=== PATIENT | female | born 1990 | race Caucasian/White ===

== ENCOUNTER 2020-02-27 15:17 | Emergency (ER) | payer OTHER, SELFPAY ==
[2020-02-27 15:32] VITALS: BP 121/77; PULSE 84; RESP 14; TEMP 37.1; O2SAT 100; BMI 30.2
--- NOTE | 2020-02-27 15:45 | ED_ITS ---
HPI - Extremity Problem General: Chief complaint: Extremity Problem,Nontraumatic Stated complaint: NAIL INTO L FOOT 02.26.20/[place]IB[facility]OTICS FROM [facility] [place] Time Seen by Provider: 02/27/20 15:38 History of Present Illness: HPI Narrative: 29-year-old female patient reports she stepped on a nail yesterday. She states was walking in a barn, stepped on a stud nail, was wearing flip-flops. States pain is become intense, reports difficulty walking. Tetanus shot and prescription of Bactrim prescribed by urgent care yesterday. She denies fever or chills -has attempted Epsom salt and ibuprofen, keeping the extremity elevated. MD Complaint: extremity pain and extremity swelling Onset (ago): day(s) (1) Pain Consistency: constant Location: left and lower extremity Quality: aching and constant Relieving factors: rest Exacerbating factors: weight bearing Associated symptoms: Reports no associated symptoms; Deny chest pain, fever(s) or rash Review of Systems General: Reports: 10 or more systems reviewed and unremarkable except in HPI and below Const: Denies: fever(s), chills or diaphoresis Eyes: Denies: blurry vision or eye redness ENMT: Denies: throat pain, dental pain or disequilibrium Card: Denies: chest pain, palpitations or irregular heart rhythm Resp: Denies: dyspnea, productive cough, non-productive cough or wheezing GI: Denies: abdominal pain, nausea or vomiting : Denies: difficulty voiding or dysuria Musc: Reports: extremity pain (left foot); Denies: neck pain or back pain Skin/Breast: Reports: erythema (left foot) and skin tenderness (left foot); Denies: rash or pruritus Neuro: Denies: headache(s), weakness in extremities or behavioral changes Psych: Denies: anxiety or depression Young/Lymph: Denies: easy bruising PFS ED PFSH: Social History (Updated 02/26/20 @ 16:09 by Veda Loco LPN) Smoking and tobacco status: never smoked Physical Exam Const: COMMON NORMALS: no acute distress, patient oriented x3, healthy appearing and alert GENERAL APPEARANCE: cooperative, comfortable and well hydrated HENMT: COMMON NORMALS: normocephalic, Normal external nose present and moist oral mucous membranes HEAD & SCALP: normocephalic NOSE: Normal external nose present Eye: COMMON NORMALS: Equal, round and reactive pupils present and EOMs intact bilaterally GENERAL EYE: appearance normal, both eyes and all related structures PUPIL: Yes Equal, round and reactive pupils present Neck/C-Spine: COMMON NORMALS: full ROM and no lymphadenopathy GENERAL: Yes normal visual inspection and Yes trachea midline CERVICAL SPINE: Yes cervical ROM normal Lymph: LYMPHATIC: no lymphadenopathy noted Chest: COMMONS NORMALS: normal inspection of the chest Resp: COMMON NORMALS: normal respiratory effort and clear to auscultation bilaterally AUSCULTATION: clear to auscultation bilaterally Cardio: COMMON NORMALS: regular rhythm, S1 normal heart sound present, S2 normal heart sound present and Peripheral pulses 2+ throughout RHYTHM: regular rhythm HEART SOUNDS: S1 normal heart sound present and S2 normal heart sound present PERIPHERAL PULSES: Peripheral pulses 2+ throughout GI: COMMON NORMALS: Soft to palpation and non-tender INSPECTION: Yes normal to inspection PALPATION: Yes Soft to palpation : COMMON NORMALS: Yes no CVA tenderness BLADDER/KIDNEY EXAM: Yes no CVA tenderness Back/Pelvis: COMMON NORMALS: no CVA tenderness and thoracic and lumbar spine normal to inspection Extremity: COMMON NORMALS: normal to inspection and capillary refill normal GENERAL: Yes normal exam except as noted RIGHT LOWER EXTREMITY: Yes foot & digits (p/w to plantar distal foot, between third and fourth MTP. Surrounding erythema noted, flexion extension of the toes noted. Negative lymphadenitis.) Neuro: COMMON NORMALS: patient oriented x3 and no focal motor deficits SENSORIUM/ORIENTATION: Yes alert Psych: COMMON NORMALS: mental status grossly normal, Normal thought process present and cooperative ACTIVITY/MOTOR BEHAVIOR: Yes appropriate eye contact THOUGHT PROCESS: Normal thought process present Skin: COMMON NORMALS: no rashes or lesions noted and turgor normal GENERAL SKIN EXAM: no rashes or lesions noted and turgor normal Course ED course: Pleasant 29-year-old female patient presents to the emergency department with left foot puncture wound. X-ray of the left foot revealed no foreign body, I called and spoke with Dr. Beavers with my concern of redness and swelling of the left foot, plantar surface surrounding the puncture wound. Advised patient needs to be seen for possible incision and drainage. I discussed with the patient plan, agrees and wishes to proceed with referral to podiatry. She will be placed on crutches and postop shoe, per Dr. Beavers, he will prescribed needed antibiotics for the patient. Consultations: Consultation #1: Dr Beavers -spoke with Dr. Beavers, advised patient to go to his office, reports will need incision and drainage of the foot since pain has worsened and redness/cellulitis of the left foot is present. He reports we will prescribe needed antibiotics after evaluation of the foot. Vital Signs: Vital signs: Vital Signs Temperature 98.8 F 02/27/20 15:32 Pulse Rate 84 02/27/20 15:32 Respiratory Rate 14 02/27/20 15:32 Blood Pressure 121/77 02/27/20 15:32 Pulse Oximetry 100 02/27/20 15:32 MDM - Extremity (Nontraumatic) Imaging Data^: Xray Ortho: Radiologist's impression: [address] [address] XRay Report Signed Patient: Alina Espinal Unit #: [id number] : 1990 Age/Sex: 29 / F ADM Date: 02/27/20 Loc: ER Room/Bed: Attending Dr: Ordering Provider/Ordering MD: Luana Valenzuela Date of Service: 02/27/20 Procedure(s): XR foot LT min 3V* 54563 Accession Number(s): [id number] Report Number: [id number] WS: [id number] Left foot, 3 views, 02/27/2020 Clinical Data: puncture wound Comparison: None. Findings: No fractures or dislocations are seen. No bone destruction or erosion is noted. The joint spaces and soft tissues are normal. No radiopaque foreign body is seen. There is no subcutaneous air in the foot. XR/XR foot LT min 3V* [id number] Impression: Negative left foot. Dictated By: Kathy Chaney MD Signed By: Kathy Chaney MD Signed Date/Time: 02/27/201557 DD/ 57 Discharge Plan Discharge Patient Disposition: Home Clinical Impression: Cellulitis of foot Puncture wound of foot Qualifiers: Encounter type: initial encounter Laterality: left Qualified Code(s): S91.332A - Puncture wound without foreign body, left foot, initial encounter Condition: Stable Prescriptions: No Action sulfamethoxazole-trimethoprim [Bactrim DS] 800-160 mg tablet 1 tab PO BID 7 Days Qty: 14 RF: 0 fluconazole [Diflucan] 150 mg tablet 150 mg PO ONCE Qty: 1 RF: 0 Discharge Orders: Discharge Order (Routine); Ordered 02/27/20 Ordered By: Luana Valenzuela Discharge Diet: Usual diet Discharge Activity: Limit activity as instructed Patient Instructions: Puncture Wound (ED), Cellulitis (ED) Activity Restrictions/Additional Instructions: when you leave the ER - you are to go directly to Dr Beavers's office for evaluation do NOT go home Dr Beavers will prescribe needed medication for you Coding Level of Care Code ED Risk And Compliance Analytics Director for Carolyn Fwd Exam Comprehensive
--- NOTE | 2020-02-27 15:45 | XR_ITS ---
WS: [id number] Left foot, 3 views, 02/27/2020 Clinical Data: puncture wound Comparison: None. Findings: No fractures or dislocations are seen. No bone destruction or erosion is noted. The joint spaces and soft tissues are normal. No radiopaque foreign body is seen. There is no subcutaneous air in the foot. XR/XR foot LT min 3V* 13082 Impression: Negative left foot.
== END 2020-02-27 16:32 | disposition home or self-care (01) ==
PROVIDERS: Emergency Provider Nurse Practitioner Family
DX: S91.332A Puncture wound without foreign body, left foot, initial encounter (principal); L03.116 Cellulitis of left lower limb; W45.0XXA Nail entering through skin, initial encounter
CPT/HCPCS: 12345; 73630; 87070; 87075; 87205; 99281; 99283; E0114

== ENCOUNTER 2020-08-13 12:11 | Emergency (ER) | payer OTHER, SELFPAY ==
[2020-08-13 12:22] VITALS: BP 164/75; PULSE 89; RESP 18; TEMP 37.1; O2SAT 99; BMI 30.2
--- NOTE | 2020-08-13 13:09 | US_ITS ---
WS: [id number] ULTRASOUND ABDOMEN LIMITED CLINICAL INFORMATION: RUQ abd pain COMPARISON: None. FINDINGS: Liver Size: Normal. Craniocaudal length: 16.1 cm. Echogenicity: Normal. Surface nodularity: None. Mass (size and location): None. Bile ducts Intrahepatic ducts: Normal. Common bile duct diameter: 0.4 cm. Gallbladder Normal. Gallstones: None. Gallbladder sludge: None. Gallbladder wall thickening: None. Pericholecystic fluid: None. Sonographic Bazzi sign: Absent. Pancreas Normal as visualized. Right kidney: Normal. Hydronephrosis: None. Size: 11.0 cm x 5.6 cm x 4.4 cm. Abdominal aorta and IVC Visualized portions are normal. Ascites: None. US/US gall bladder [id number] IMPRESSION: Normal abdominal ultrasound
--- NOTE | 2020-08-13 13:10 | W.ED.ABDPA2 ---
HPI - Abdominal Pain General: Chief Complaint: Abdominal Pain Stated Complaint: RUQ ABD PAIN/STATES GALLBLADDER PROB X COUPLE YRS Time Seen by Provider: 08/13/20 12:38 History of Present Illness: HPI narrative: 30-year-old female presents emergency room with complaint of abdominal pain. This is actually been going on for several years. She has right upper quadrant abdominal pain seems to go from the umbilicus radiating up into the right upper quadrant into her back she denies dysuria urgency or frequency. She states it began after her last child she has had a previous HIDA scan but evidently never had a gallbladder ultrasound. HIDA scan was reported to her as normal so she did not pursue it any further but last few weeks she has had a significant increase in abdominal discomfort she states almost anything she eats seems to trigger it. She denies any vomiting or diarrhea no fever. No dysuria urgency or frequency MD elicited complaint: abdominal pain Onset (ago): year(s) Pain Consistency: intermittent Location: RUQ Severity: moderate Quality: cramping and stabbing Radiation: R flank Exacerbating factors: eating (Particular foods) Relieving factors: nothing Associated Symptoms: Reports bloating, change in bowel habits, change in stool character, GI cramping, dyspepsia, nausea and poor appetite; Denies chills, coffee ground emesis, constipation, diarrhea, dysuria, excessive flatus, fever(s), heartburn, hematochezia, hematuria, hematemesis, fecal incontinence, loose stools, melena, syncope and vomiting Review of Systems Const: Denies: fever(s) or chills ENMT: Denies: throat pain, ear or mastoid pain, nasal discharge or nasal congestion Card: Denies: syncope Resp: Denies: dyspnea, productive cough or non-productive cough GI: Reports: nausea, bloating, GI cramping, change in bowel habits and change in stool character; Denies: vomiting, hematemesis, coffee ground emesis, diarrhea, constipation, excessive flatus, fecal incontinence, hematochezia or melena : Denies: dysuria or hematuria Skin/Breast: Denies: rash or pruritus PFS ED PFSH: Medical History (Updated 08/13/20 @ 14:13 by Josr Kovacs DO) No pertinent past medical history Surgical History History of delivery Social History Smoking and tobacco status: never smoked Physical Exam Const: COMMON NORMALS: no acute distress GENERAL APPEARANCE: cooperative and comfortable ORIENTATION/CONSCIOUSNESS: Yes awake, Yes oriented to person, Yes oriented to place and Yes oriented to time HENMT: COMMON NORMALS: normocephalic, atraumatic and hearing grossly normal bilaterally HEAD & SCALP: normocephalic and atraumatic Neck/C-Spine: COMMON NORMALS: no JVD Resp: COMMON NORMALS: normal respiratory effort, No retractions, No use of accessory muscles and clear to auscultation bilaterally AUSCULTATION: clear to auscultation bilaterally Cardio: COMMON NORMALS: no JVD, regular rate, regular rhythm and No murmurs present (Cardio) RATE: regular rate RHYTHM: regular rhythm GI: COMMON NORMALS: Soft to palpation and No hepatosplenomegaly present AUSCULTATION: Yes normoactive bowel sounds PALPATION: Yes Soft to palpation, No Tenderness to palpation present (GI), No Guarding due to palpation present (GI) and Yes No hepatosplenomegaly present Extremity: COMMON NORMALS: normal to inspection, capillary refill normal, no clubbing, cyanosis or edema, no calf tenderness and no pedal edema Neuro: SENSORIUM/ORIENTATION: Yes oriented to person, Yes oriented to place and Yes oriented to time Skin: COMMON NORMALS: no rashes or lesions noted GENERAL SKIN EXAM: no rashes or lesions noted Course Vital Signs: Vital signs: Vital Signs Temperature 98.7 F 08/13/20 12:22 Pulse Rate 72 08/13/20 14:29 Respiratory Rate 18 08/13/20 12:22 Blood Pressure 119/72 08/13/20 14:29 Pulse Oximetry 72 L 08/13/20 14:29 MDM - Abdominal Pain MDM Narrative: Medical decision making narrative: Liver functions and T bili are normal. CT and gallbladder ultrasound unremarkable. Patient on Zofran as needed Protonix daily and encourage her to follow-up with primary care doctor to repeat HIDA scan and/or have endoscopy completed. Return if has further problems Lab Data: Labs: Lab Results 08/13/20 08/13/20 08/13/20 Range/Units 13:07 13:07 13:07 Sodium 135 L (136-145) mmol/L Potassium 4.1 (3.5-5.1) mmol/L Chloride 101 (98-107) mmol/L Carbon Dioxide 24 (22-29) mmol/L Anion Gap 14.1 (5-19) BUN 9 (6-20) mg/dL Creatinine 0.6 (0.5-0.9) mg/dL GFR Calculation 116.6 (90-130) mL/min Glucose 76 (65-115) mg/dL Calculated Osmolal ity 277 L (285-295) mOsm/k g Calcium 9.0 (8.5-10.5) mg/dL Total Bilirubin 0.6 (0.15-1.2) mg/dL AST 22 (0-32) U/L ALT 17 (0-33) U/L Alkaline Phosphata se 59 (35-105) IU/L Total Protein 7.9 (6.6-8.7) g/dL Albumin 5.0 (3.5-5.2) g/dL Globulin 2.9 (1.3-4.6) g/dL Lipase 23 (13-60) U/L HCG, Qual Negative (Negative) Urine Color Straw (Yellow) Urine Appearance Clear (CLEAR) Urine pH 6.5 (5-7) Ur Specific Gravit y 1.000 L (1.005-1.030) Urine Protein Neg (Negative) Urine Glucose (UA) Norm (Normal) Urine Ketones Negative (Negative) Urine Blood Neg (Negative) Urine Nitrate Negative (Negative) Urine Bilirubin Neg (Negative) Urine Urobilinogen Norm (Negative) mg/dL Ur Leukocyte Yolanda ase Negative (Negative) Discharge Plan Discharge Patient Disposition: Home Clinical Impression: Abdominal pain Condition: Stable Prescriptions: New Zofran 4 mg tablet 4 mg PO Q6H PRN (Reason: nausea and vomiting) Qty: 20 RF: 0 Protonix 40 mg tablet,delayed release (DR/EC) 40 mg PO QAM 56 Days Qty: 56 RF: 0 No Action mupirocin 2 % ointment 1 applic TOPICAL BID Qty: 15 RF: 0 sulfamethoxazole-trimethoprim [Bactrim DS] 800-160 mg tablet 1 tab PO BID 7 Days Qty: 14 RF: 0 fluconazole [Diflucan] 150 mg tablet 150 mg PO ONCE Qty: 1 RF: 0 clindamycin HCl 300 mg capsule 300 mg PO TID 7 Days Qty: 21 RF: 0 ciprofloxacin HCl 500 mg tablet 500 mg PO Q12H 7 Days Qty: 14 RF: 0 hydrocodone-acetaminophen [Coyle] 5-325 mg tablet 1 tab PO Q4H PRN (Reason: pain) 7 Days Qty: 20 RF: 0 oxycodone-acetaminophen [Percocet] 10-325 mg tablet 1 tab PO Q4H PRN (Reason: pain) 7 Days Qty: 20 RF: 0 oxycodone-acetaminophen [Percocet] 10-325 mg tablet 1 tab PO Q6H PRN (Reason: pain) 7 Days Qty: 20 RF: 0 Discharge Orders: Discharge ED (Routine); Ordered 08/13/20 Ordered By: Josr Kovacs Referrals: Tahira Sommer FNP [Primary Care Provider] - Patient Instructions: Abdominal Pain (ED), Opioid Safety Coding Level of Care Code ED Human Resources Receptionist for Carolyn Maradiaga
[2020-08-13 13:23] VITALS: BP 119/72; PULSE 68; O2SAT 98
--- NOTE | 2020-08-13 13:32 | CT_ITS ---
WS: [id number] CT scan of the abdomen and pelvis with IV contrast. Additional two-dimensional coronal and sagittal r econstruction was performed. 08/13/2020 Clinical Data: abd pain Comparison: CT abdomen and pelvis, 06/22/2018. DLP: 1360.[address] scans at [facility] [place] use at least one of these dose optimization techniques: automat ed exposure control; mA and/or kV adjustment per patient size (includes targeted exams where dose is matched to clinical indication); or iterative reconstruction. Findings: The lower lungs show no nodules, masses or effusions. The liver, gallbladder, spleen, adrenal glands and pancreas are normal. The kidneys show equal bilateral contrast excretion with no cyst or masses. There is a central 0.3 cm nonobstructing left renal calculus The abdominal aorta is normal in size. No appendicitis or diverticulitis is seen. The stomach, small bowel and colon show no abnormalities. There is fecal material in the colon. No abscess, adenopathy, ascites, mass, obstruction or free air seen. The bladder is unremarkable. There is a 1.4 cm right adnexal cyst. The uterus is retroverted. No ingu inal hernia is seen. The bones of the lower thorax, lumbar spine, pelvis, and hips are normal. CT/CT abdomen pelvis w con* [id number] Impression: 1. Negative for acute intra-abdominal or pelvic abnormalities. 2. Nonobstructing left renal calculus and 1.4 cm right adnexal cyst.
[2020-08-13 13:33] LABS: Add Urine Microscopic? NO; Charge for UA Resulting for Rev
[2020-08-13 13:35] LABS: Bilirubin Urine Neg (Negative); Blood Urine Neg (Negative); Glucose Urine UA Norm (Normal); Ketones Urine Negative (Negative); Leukocyte Esterase Urine Negative (Negative); Nitrate Urine Negative (Negative); Protein Urine Neg (Negative); Urine Appearance Clear (CLEAR); Urine Color Straw (Yellow); Urobilinogen Urine Norm (Negative); pH Urine 6.5 (5-7)
[2020-08-13] MEDS: sodium chlor 0.9% + KCl 20 mEq 20 MEQ/1,000 ML BAG 125 MEQ IV (13:35)
[2020-08-13] MEDS: ondansetron 2 mg/ML SDV 2 mL 4 MG IVP (13:35)
[2020-08-13 13:36] LABS: HCG, Serum Qual Negative (Negative)
[2020-08-13 13:47] LABS: Alkaline Phosphatase 59 IU/L (35-105); Blood Urea Nitrogen 9 mg/dL (6-20); Carbon Dioxide 24 mmol/L (22-29); Chloride 101 mmol/L (98-107); Creatinine Clr Calc Pharmacy 123.7692; Globulin 2.9 g/dL (1.3-4.6); Glomerular Filtration Rate 116.6 mL/min (90-130); Glucose 76 mg/dL (65-115); Lipase 23 U/L (13-60); Osmolality Calculated 277 mOsm/kg (285-295); Sodium 135 mmol/L (136-145); Total Bilirubin 0.6 mg/dL (0.15-1.2); Total Protein 7.9 g/dL (6.6-8.7)
[2020-08-13 13:51] LABS: Anion Gap 14.1 (5-19)
[2020-08-13] MEDS: iohexol 300 mg/mL 100 mL Btl IV (13:51)
[2020-08-13 13:52] LABS: Alanine Aminotransferase 17 U/L (0-33); Aspartate Amino Transferase 22 U/L (0-32); Potassium 4.1 mmol/L (3.5-5.1)
[2020-08-13 14:29] VITALS: BP 119/72; PULSE 72; O2SAT 72
== END 2020-08-13 14:30 | disposition home or self-care (01) ==
PROVIDERS: Emergency Provider Family Medicine; PCP Registered Nurse
DX: R10.9 Unspecified abdominal pain (principal)
CPT/HCPCS: 74177; 76705; 80053; 81003; 83690; 84703; 96365; 96366; 96375; 99284; J2405; Q9967

== ENCOUNTER → 2020-10-08 16:10 | Outpatient (BNVA) | payer OTHER, SELFPAY | PROVIDERS: PCP Registered Nurse; Visit Provider Obstetrics & Gynecology | DX: Z12.4 Encounter for screening for malignant neoplasm of cervix (principal) | CPT/HCPCS: 88175 ==

== ENCOUNTER → 2020-10-21 15:58 | Outpatient (BNVA) | payer OTHER, SELFPAY | PROVIDERS: PCP Registered Nurse; Visit Provider Obstetrics & Gynecology | DX: N92.0 Excessive and frequent menstruation with regular cycle (principal); N94.6 Dysmenorrhea, unspecified | CPT/HCPCS: 76830 ==

== ENCOUNTER → 2020-12-18 13:47 | Outpatient (BNVA) | payer OTHER, SELFPAY | PROVIDERS: PCP Registered Nurse; Visit Provider Obstetrics & Gynecology | DX: N94.6 Dysmenorrhea, unspecified (principal); N80.0 Endometriosis of uterus; N92.0 Excessive and frequent menstruation with regular cycle; D21.9 Benign neoplasm of connective and other soft tissue, unspecified | CPT/HCPCS: 87635 ==

== ENCOUNTER 2020-12-22 09:35 | Observation (INO) | payer OTHER, SELFPAY ==
[2020-12-21 09:33] VITALS: BMI 30.9
[2020-12-22] VITALS (16 sets, daily range): BP systolic 97–132; BP diastolic 55–91; PULSE 73–100; RESP 16–26; TEMP 36.4–37.2; O2SAT 93–100
[2020-12-22] MEDS: sodium chloride 0.9% 1,000 ML 30 ML IV (06:22)
--- NOTE | 2020-12-22 06:39 | ANES.PREANE2 ---
Pre-Anesthetic Assessment Pre-Anesthetic Assessment: Height/Weight: Height 1.55 m Weight 74.389 kg Temp Pulse Resp BP Pulse Ox 98.2 F 81 18 129/91 97 12/22/20 06:15 12/22/20 06:15 12/22/20 06:15 12/22/20 06:15 12/22/20 06:15 Preop Diagnosis: dysmenorrhea, uterine leiomyoma, menorrhagia Proposed Procedure: Operation Date: 12/22/20 07:00 Proposed Procedures p Laparoscopic Assist Vaginal Hysterectomy 02452 n94.6 n85.2 n80.0(Not Applicable) - Lina Santos MD Familial anesthetic complications: None Was Beta Mago taken within 24 hours: N/A Was Clonidine taken within 24 hours: N/A Last intake: Intake Last Liquid Date 12/21/20 Last Liquid Time 20:00 Last Solid Date 12/21/20 Last Solid Time 20:00 Social: Social History: No alcohol and No tobacco Exam: Pre-Anes Outpt Exam: alert, oriented x 3, clear to auscultation bilaterally and regular rate & rhythm Airway: Cervical ROM: WNL MP: 2 Dentition: Caps Anesthetic Plan: ASA status: 1 Anesthesia: General Risk of > 500 ml blood loss (7ml/kg in children): No Meds/Allergies Current Medications: Current Medications Generic Name Dose Route Start Last Admin Trade Name Freq PRN Reason Stop Dose Admin Sodium Chloride 1,000 mls @ 30 ml s/hr 12/22/20 06:15 12/22/20 06:22 Sodium Chloride 0.9% IV 12/23/20 06:14 30 mls/hr .Q24H KERA Administration PFSH Anesthesia PFSH: Medical History (Updated 12/18/20 @ 18:42 by Lina Santos MD) No pertinent past medical history Surgical History History of delivery Family History Grandfather Diabetes Paternal Mother Diabetes Hypertension Grandmother Diabetes Maternal Heart disease Maternal Stroke Maternal Father Hypertension Family/Other Ovarian cyst Paternal aunt Denies family history of Clotting disorder Hyperlipidemia Chronic kidney disease (CKD) Bleeding disorder Cancer Thyroid disease Female Reproductive History: Date of last menstrual period: 12/08/20 Data Anesthesia Cardiac Studies: No Data to Display
[2020-12-22] MEDS: acetaminophen 1,000 MG/100 ML PIGGYBACK 400 MG IV (06:40)
[2020-12-22] MEDS: phenazopyridine 100 mg Tablet 200 MG PO (06:49)
[2020-12-22] MEDS: gabapentin 300 mg Capsule PO (06:49)
[2020-12-22] MEDS: CELEcoxib 200 mg Capsule 400 MG PO (06:49)
[2020-12-22] MEDS: ketorolac 30 mg/mL INJ IVP ×3 (06:49→16:47)
[2020-12-22 07:03] LABS: Basophils # 0.1 10^3/uL (0.0-0.1); Basophils % 0.7 %; Eosinophils # 0.4 10^3/uL (0.0-0.8); Eosinophils % 5.9 %; Hematocrit 45.9 % (37.0-47.0); Hemoglobin 15.3 g/dL (11.5-15.3); Lymphocytes % 27.9 %; Mean Corpuscular HGB Conc 33.3 g/dL (30.0-36.0); Mean Corpuscular Volume 93.1 fl (81-99); Mean Platelet Volume 11.5 fL (7.4-10.4); Monocytes # 0.5 10^3/uL (0.2-0.9); Monocytes % 6.2 %; Neutrophils # 4.29 10^3/uL (1.8-7.7); Nucleated Red Blood Cells % 0 %; Platelet Count 219 10^3/cmm (130-400); Red Blood Count 4.93 10^6/uL (4.1-5.3); Red Cell Distribution Width 11.7 % (12.1-15.1); White Blood Count 7.3 10^3/uL (4.0-10.0)
--- NOTE | 2020-12-22 07:06 | W.PM.OPSUD ---
Surgery/Procedure H&P Update DATE OF PROCEDURE: December 22, 2020 DATE H&P PERFORMED: 12/18/20 H&P UPDATE INFORMATION: I have reviewed H&P completed within last 30 days, I have examined patient prior to procedure and Changes to prior documentation as noted here CHANGES TO PREVIOUS DOCUMENTATION: added bilateral salpingectomy to consent. We had previously discussed this and she would like to have her fallopian tubes removed. PREOP DIAGNOSIS: dysmenorrhea, uterine leiomyoma, menorrhagia PLANNED PROCEDURE: Operation Date: 12/22/20 07:00 Proposed Procedures p Laparoscopic Assist Vaginal Hysterectomy 41993 n94.6 n85.2 n80.0(Not Applicable) - Lina Santos MD
[2020-12-22 07:24] LABS: Blood Urea Nitrogen 11 mg/dL (6-20); Calcium 8.9 mg/dL (8.5-10.5); Carbon Dioxide 26 mmol/L (22-29); Chloride 103 mmol/L (98-107); Glomerular Filtration Rate 116.6 mL/min (90-130); Glucose 107 mg/dL (65-115); Osmolality Calculated 288 mOsm/kg (285-295); Sodium 139 mmol/L (136-145)
[2020-12-22 07:53] LABS: Anion Gap 14.2 (5-19); Potassium 4.2 mmol/L (3.5-5.1)
--- NOTE | 2020-12-22 09:13 | P.OP_ITS ---
Operative Report Date of procedure: December 22, 2020 Pre-op Diagnosis: dysmenorrhea, uterine leiomyoma, menorrhagia Post-op diagnosis: same Post-op Diagnosis: omental adhesion to umbilicus Post-op Findings: normal appearing uterus, tubes and ovaries, omental adhesion to umbilicus Procedure Done: Laparoscopic assisted vaginal hysterectomy with bilateral salpingectomy. Specimens removed/disposition: uterus and bilateral fallopian tubes to pathology Anesthesia: General Estimated blood loss (mL): 200 IV fluids (mL): 1,100 Urine output (mL): 700 Complications: none Findings: 10 week sized uterus with normal appearing fallopian tubes and ovaries. Omental adhesion to anterior abdominal wall Condition: stable Disposition: PACU Procedure: The patient was taken to the operating room where general anesthesia was administered and found to be adequate. She was prepped and draped in the normal sterile fashion in the dorsal lithotomy position in [facility]. A Denson catheter was placed. A weighted speculum was placed into the vagina and the anterior lip of the cervix was grasped with a single tooth tenaculum. The Zumi uterine manipulator was placed. The weighted speculum was removed. The gloves were changed and attention was turned to the abdomen. A 5 mm infraumbilical incision was made. Using a 5 mm port with the camera, the port was placed into the abdomen. The abdomen was insufflated. Two low, lateral 5 mm ports were placed on the left and right under direct visualization from the camera. The right tube was grasped and elevated. Using the laparoscopic cautery, the mesosalpinx was cauterized between the ovary and tube up to the uterus. The fallopian tube was cauterized at the uterus and the specimen removed. The procedure was performed the same way on the left. There was excellent hemostasis. Attention was then turned to the vaginal portion of the procedure. The weighted speculum was placed into the vagina. The zumi manipulator was removed. The single tooth tenaculum was removed and replaced with the kassi's tenaculum. 10 mL of dilute Pitressin was injected at the vesicovaginal junction. A circumferential incision was made at the vesicovaginal junction and the vaginal mucosa reflected cephalad. The posterior peritoneum was entered sharply with the Metzenbaum scissors and the long weighted speculum replaced. Using the Oleksandr clamps the uterosacral ligaments were clamped cut and suture- ligated. Then sequentially the uterine arteries and cardinal ligaments were clamped cut and suture-ligated. A single-tooth tenaculum was used to deliver the uterus. The utero-ovarian ligaments were clamped cut and suture-ligated bilaterally and the specimen was removed. The bilateral ovaries were visualized and found to be normal. The peritoneum was closed with a pursestring using 2-0 Vicryl. The vaginal cuff was closed with 0 Vicryl in a running locked pattern incorporating the uterosacral ligaments into the lateral aspects of the vaginal cuff. The Denson catheter was removed and the cystoscope advanced into the bladder. The patient was given pyridium and bilateral spill was noted. There were no injuries or deficits noted in the bladder. The cystoscope was removed and the Denson was replaced. Vaginal packing was placed for good hemostasis. She tolerated the procedure well. Sponge lap and needle counts were correct x3. She was taken to the recovery room in stable condition.
[2020-12-22] MEDS: vasopressin 20 unit/mL INJ INJECTION (09:17)
--- NOTE | 2020-12-22 10:28 | PC.NURSE ---
Patient arrived to floor at 0950 from PACU via bed. No complaints at this time. Patient only states she is feeling pressure due to packing and giordano.
--- NOTE | 2020-12-22 10:30 | PC.NURSE ---
No belongings were brought with patient from PACU.
[2020-12-22] MEDS: oxyCODONE-APAP 5-325 mg Tablet PO ×2 (10:56→19:30)
[2020-12-22] MEDS: HYDROmorphone 1 mg/mL INJ 1 mL 1.5 MG IVP (12:04)
--- NOTE | 2020-12-22 14:12 | ANE.PACU2 ---
Inpatient post-anesthesia follow up: Airway intact: Yes Vital signs: Temperature 97.7 F Pulse Rate 77 Respiratory Rate 16 Blood Pressure 106/70 Pulse Oximetry 95 Oxygen Delivery Me thod Room Air Oxygen Flow Rate 8 Fraction of Inspir ed Oxygen Hydration adequate: Yes Nausea and vomiting: No Pain level: 2 Mental status: Baseline
[2020-12-22] MEDS: ondansetron 2 mg/ML SDV 2 mL 4 MG IVP (16:48)
--- NOTE | 2020-12-22 17:14 | PC.NURSE ---
Assisted pt to sit on side of bed. Pt became very nauseas. Zofran administered and pt requested to sit on side of bed for awhile. Nausea subsided and this nurse educated pt to press call light when she is ready to go back to bed or if she wanted to get up and walk.
[2020-12-22] MEDS: docusate sodium 100 mg Capsule PO (18:21)
[2020-12-22] MEDS: dextrose 5%-lactated ringers 1,000 ML 125 ML IV (18:22)
[2020-12-23 02:35] VITALS: RESP 14
[2020-12-23] MEDS: oxyCODONE-APAP 5-325 mg Tablet PO ×2 (02:35→09:06)
[2020-12-23] MEDS: dextrose 5%-lactated ringers 1,000 ML 125 ML IV (02:35)
[2020-12-23 04:50] VITALS: BP 111/59; PULSE 81; TEMP 36.7; O2SAT 96
[2020-12-23 05:15] LABS: Hematocrit 37.5 % (37.0-47.0); Hemoglobin 12.3 g/dL (11.5-15.3); Mean Corpuscular HGB Conc 32.8 g/dL (30.0-36.0); Mean Corpuscular Hemoglobin 31.6 pg (28.0-34.0); Mean Corpuscular Volume 96.4 fl (81-99); Mean Platelet Volume 11.3 fL (7.4-10.4); Platelet Count 193 10^3/cmm (130-400); Red Blood Count 3.89 10^6/uL (4.1-5.3); Red Cell Distribution Width 11.9 % (12.1-15.1); White Blood Count 15.1 10^3/uL (4.0-10.0)
--- NOTE | 2020-12-23 06:41 | PM.DCS ---
Discharge Providers Date of Admission: 12/22/20 09:35 Date of Discharge: December 23, 2020 Attending Provider at Admission: Lina Santos MD Attending Provider at Discharge: Lina Santos MD Primary Care Provider: ROCIO Núñez Diagnoses at Discharge Discharge Diagnosis (1) Postoperative state: Status: Acute Reason for Visit Reason for Visit: lap assisted vaginal hysterectomy Hospital Course Hospital Course The patient was admitted for surgery. She did well postoperatively and was ready for discharge on POD#! Physical Exam Narrative: EXAM NARRATIVE: The patient is doing well this morning. No complaints. Her pain is well controlled. Packing has been removed. She is able to urinate without the catheter. Const: COMMON NORMALS: no acute distress, average body habitus and patient oriented x3 GENERAL APPEARANCE: cooperative, comfortable, well kempt and well developed ORIENTATION/CONSCIOUSNESS: Yes awake, Yes oriented to person, Yes oriented to place and Yes oriented to time Resp: COMMON NORMALS: normal respiratory effort EFFORT & INSPECTION: Yes able to speak in complete sentences : COMMON NORMALS: Yes normal external appearance and Yes normal appearance of the vagina Extremity: COMMON NORMALS: no clubbing, cyanosis or edema and no calf tenderness Neuro: COMMON NORMALS: patient oriented x3 SENSORIUM/ORIENTATION: Yes oriented to person, Yes oriented to place and Yes oriented to time Psych: APPEARANCE: Yes well kempt Urinary Catheter Management^: F: Cath Placed During This Visit: yes, but has since been removed by the nurse Reason for Continuing Indwelling Catheter: Decision to DC Catheter Urinary Catheter Date of Insertion: 12/22/20 Urinary Catheter Time of Insertion: 07:40 Date Urinary Catheter Removed: 12/22/20 Time Urinary Catheter Discontinued: 22:00 Discharge Data Data Completed and Pending: Pending at discharge Category Date Time Status ES surgery / GI i mages Routine Exams 12/22/20 06:47 Taken Urine Culture [facility] 12/22/20 07:40 Received Pathology: Surgic al [PTH] Routine Pth 12/22/20 09:28 Received Labs from last 24 hours 12/23/20 12/22/20 12/22/20 04:58 06:32 06:32 WBC 15.1 H RBC 3.89 L Hgb 12.3 Hct 37.5 MCV 96.4 MCH 31.6 MCHC 32.8 RDW 11.9 L Plt Count 193 MPV 11.3 H Neut % (Auto) Lymph % (Auto) [place] % (Auto) Eos % (Auto) Baso % (Auto) Neut # (Auto) Lymph # (Auto) [place] # (Auto) Eos # (Auto) Baso # (Auto) Nucleated RBC % (a uto) Nucleated RBCs # Sodium 139 Potassium 4.2 Chloride 103 Carbon Dioxide 26 Anion Gap 14.2 BUN 11 Creatinine 0.6 GFR Calculation 116.6 Glucose 107 Calculated Osmolal ity 288 Calcium 8.9 Blood Type O Positive Rho(D) Type Positive Antibody Screen Negative 12/22/20 06:32 WBC 7.3 RBC 4.93 Hgb 15.3 Hct 45.9 MCV 93.1 MCH 31.0 MCHC 33.3 RDW 11.7 L Plt Count 219 MPV 11.5 H Neut % (Auto) 59.0 Lymph % (Auto) 27.9 [place] % (Auto) 6.2 Eos % (Auto) 5.9 Baso % (Auto) 0.7 Neut # (Auto) 4.29 Lymph # (Auto) 2.0 [place] # (Auto) 0.5 Eos # (Auto) 0.4 Baso # (Auto) 0.1 Nucleated RBC % (a uto) 0 Nucleated RBCs # 0.0 Sodium Potassium Chloride Carbon Dioxide Anion Gap BUN Creatinine GFR Calculation Glucose Calculated Osmolal ity Calcium Blood Type Rho(D) Type Antibody Screen Vitals: Last Vital Signs Temp 98.1 F 12/23/20 04:50 Pulse 81 12/23/20 04:50 Resp 14 12/23/20 02:35 BP 111/59 12/23/20 04:50 Pulse Ox 96 12/23/20 04:50 Discharge Plan Discharge Patient Disposition: Home Condition: Stable Prescriptions: New oxycodone-acetaminophen 5-325 mg Tablet 1 tab PO Q4H PRN (Reason: Moderate To Severe Pain) Qty: 30 RF: 0 Continued multivitamin Tablet 1 tab PO DAILY RF: 0 Discharge Orders: Discharge Order (Routine); Ordered 12/23/20 Ordered By: Lina Santos Patient Instructions: Opioid Safety Discharge Attestations Time Spent in Discharge Care*: less than 30 min Quality Metrics Clinical Quality Measures During this hospital stay, did patient experience: None Coding Level of Care Code Acute [facility] DC note Diagnoses Postoperative state Z98.890
[2020-12-23 09:06] VITALS: RESP 16
[2020-12-23] MEDS: ibuprofen 800 mg tablet PO (09:06)
[2020-12-23] MEDS: simethicone 80 mg Chew PO (09:06)
[2020-12-23] MEDS: docusate sodium 100 mg Capsule PO (09:06)
[2020-12-23 09:10] VITALS: BP 129/85; PULSE 81; RESP 19; TEMP 36.8; O2SAT 97
== END 2020-12-23 09:20 | disposition home or self-care (01) ==
LOC: OBGYN 09:39
PROVIDERS: Admitting Provider Obstetrics & Gynecology; PCP Registered Nurse; Visit Provider Obstetrics & Gynecology
PROC: 0UT9FZZ Resection of Uterus, Via Natural or Artificial Opening With Percutaneous Endoscopic Assistance (ICD-10-PCS; CPT 58552; principal; 2020-12-22 07:00)
PROC: (CPT 58661; 2020-12-22 07:00)
DX: N94.6 Dysmenorrhea, unspecified (principal); D25.9 Leiomyoma of uterus, unspecified; N92.0 Excessive and frequent menstruation with regular cycle; Z82.49 Family history of ischemic heart disease and other diseases of the circulatory system; Z83.3 Family history of diabetes mellitus; Z87.891 Personal history of nicotine dependence
CPT/HCPCS: 58552; 36415; 80048; 85025; 85027; 86850; 86900; 87086; 88307; 96374; G0378; J0690; J1100; J1170; J1885; J2405; J2704; J3010; J3490; J7030

== ENCOUNTER 2023-12-05 20:31 | Emergency (ER) | payer OTHER, SELFPAY ==
[2023-12-05] VITALS (7 sets, daily range): BP systolic 99–146; BP diastolic 57–105; PULSE 81–104; RESP 18–20; TEMP 36.8; O2SAT 94–99
--- NOTE | 2023-12-05 20:52 | ED_ITS ---
HPI - Abdominal Pain 2 General: Chief Complaint: Abdominal Pain Stated Complaint: ABD Pain Time Seen by Provider: 12/05/23 20:46 History of Present Illness: Presents with right-sided abdominal pain that somewhat radiates into the groin, it comes and goes feels like she needs to pee or have a BM but is unable to do either 1 started last night but went away. Then returned tonight even worse. Started about 2 hours after she ate. Patient has not ate or drink anything since this pain started. She is has had her gallbladder removed and had a hysterectomy. Patient says it feels like something is stabbing in her abdomen or scraping on the insides. Review of Systems 2 General: Reports: 10 or more systems reviewed and unremarkable except in HPI and below PFSH ED 2 PFSH: Medical History (Updated 12/05/23 @ 23:15 by Pravin Trent DO) No pertinent past medical history Surgical History History of delivery Family History Grandfather Diabetes Paternal Mother Diabetes Hypertension Grandmother Diabetes Maternal Heart disease Maternal Stroke Maternal Father Hypertension Family/Other Ovarian cyst Paternal aunt Denies family history of Clotting disorder Hyperlipidemia Chronic kidney disease (CKD) Bleeding disorder Cancer Thyroid disease Physical Exam 2 Const: COMMON NORMALS: no acute distress, average body habitus, patient oriented x3, no limitations, healthy appearing, alert and well nourished HENMT: COMMON NORMALS: normocephalic, atraumatic, hearing grossly normal bilaterally, external ears normal, Normal external nose present and moist oral mucous membranes HEAD & SCALP: normocephalic and atraumatic NOSE: Normal external nose present EXTERNAL EAR: Yes external ears normal Neck/C-Spine: COMMON NORMALS: no JVD Chest: COMMONS NORMALS: normal inspection of the chest and normal palpation of entire chest wall Resp: COMMON NORMALS: normal respiratory effort, No retractions, No use of accessory muscles and clear to auscultation bilaterally AUSCULTATION: clear to auscultation bilaterally Cardio: COMMON NORMALS: no JVD, regular rate, regular rhythm, S1 normal heart sound present, S2 normal heart sound present, No gallops present (Cardio), No clicks present (Cardio), No murmurs present (Cardio) and No rub (Cardio) R ATE: regular rate RHYTHM: regular rhythm HEART SOUNDS: S1 normal heart sound present and S2 normal heart sound present GI: COMMON NORMALS: Normal to inspection, nondistended, normoactive bowel sounds present, Soft to palpation, non-tender, No hepatosplenomegaly present and no masses PALPATION: Yes Soft to palpation and Yes No hepatosplenomegaly present Neuro: COMMON NORMALS: patient oriented x3 SENSORIUM/ORIENTATION: Yes alert Course 2 Vital Signs: Vital signs: Vital Signs Temperature 98.3 F 12/05/23 20:39 Pulse Rate 83 12/05/23 22:29 Respiratory Rate 20 H 12/05/23 20:49 Blood Pressure 99/72 12/05/23 22:29 Pulse Oximetry 98 12/05/23 22:29 Oxygen Delivery Me thod Room Air 12/05/23 22:29 MDM - Abdominal Pain Medical Decision Making Lab work was obtained physical exam was performed, patient is having a 4 mm obstructing kidney stone in the right proximal ureter. This was discussed with the patient. Patient be given pain medicine and follow-up with urology. Differential Diagnosis Likely abdominal pain Medical Records I reviewed the patient's medical records. Lab Data I reviewed the patient's lab results. 12/05/23 20:55 12/05/23 20:55 Labs/Radiology: Radiology Impressions Abdomen/Pelvis CT 12/05/23 21:43 IMPRESSION: 0.4 cm obstructing calculus within the proximal right ureter. Moderate right-sided hydroureteronephrosis. Mild right perinephric fat stranding. Laboratory Results WBC 7.18 10^3/uL (3.29-11.43) 12/05/23 20:55 RBC 4.62 10^6/uL (3.85-5.65) 12/05/23 20:55 Hgb 15.40 g/dL (11.27-16.99) 12/05/23 20:55 Hct 44.2 % (36-47) 12/05/23 20:55 MCV 95.7 fl (85-98) 12/05/23 20:55 MCH 33.3 pg (27-33) H 12/05/23 20:55 MCHC 34.8 g/dL (30-55) 12/05/23 20:55 RDW 11.9 % (12.1-15.1) L 12/05/23 20:55 Plt Count 176 10^3/cmm (157-399) 12/05/23 20:55 MPV 10.9 fL (7.4-10.4) H 12/05/23 20:55 Neut % (Auto) 58.7 % 12/05/23 20:55 Lymph % (Auto) 27.0 % 12/05/23 20:55 [place] % (Auto) 6.4 % 12/05/23 20:55 Eos % (Auto) 6.8 % 12/05/23 20:55 Baso % (Auto) 0.8 % 12/05/23 20:55 Neut # (Auto) 4.21 10^3/uL (1.8-7.7) 12/05/23 20:55 Lymph # (Auto) 1.9 10^3/uL (0.8-4.8) 12/05/23 20:55 [place] # (Auto) 0.5 10^3/uL (0.2-0.9) 12/05/23 20:55 Eos # (Auto) 0.5 10^3/uL (0.0-0.8) 12/05/23 20:55 Baso # (Auto) 0.1 10^3/uL (0.0-0.1) 12/05/23 20:55 Nucleated RBC % (auto) 0 % 12/05/23 20:55 Nucleated RBCs # 0.0 /100WBC 12/05/23 20:55 Sodium 137 mmol/L (136-145) 12/05/23 20:55 Potassium 3.8 mmol/L (3.5-5.1) 12/05/23 20:55 Chloride 101 mmol/L (98-107) 12/05/23 20:55 Carbon Dioxide 24 mmol/L (22-29) 12/05/23 20:55 Anion Gap 15.8 (5-19) 12/05/23 20:55 BUN 11 mg/dL (6-20) 12/05/23 20:55 Creatinine 0.7 mg/dL (0.5-0.9) 12/05/23 20:55 GFR Calculation 95.8 mL/min (90-130) 12/05/23 20:55 Glucose 110 mg/dL (65-115) 12/05/23 20:55 Calculated Osmolality 284 mOsm/kg (285-295) L 12/05/23 20:55 Calcium 9.3 mg/dL (8.5-10.5) 12/05/23 20:55 Magnesium 1.8 mg/dL (1.7-2.3) 12/05/23 20:55 Total Bilirubin 0.4 mg/dL (0.15-1.2) 12/05/23 20:55 AST 38 U/L (0-32) H 12/05/23 20:55 ALT 37 U/L (0-33) H 12/05/23 20:55 Alkaline Phosphatase 77 U/L (35-105) 12/05/23 20:55 Total Protein 7.4 g/dL (6.6-8.7) 12/05/23 20:55 Albumin 4.5 g/dL (3.5-5.2) 12/05/23 20:55 Globulin 2.9 g/dL (1.3-4.6) 12/05/23 20:55 Lipase 44 U/L (13-60) 12/05/23 20:55 Urine Color Yellow (Yellow) 12/05/23 21:20 Urine Appearance Clear (CLEAR) 12/05/23 21:20 Urine pH 6.0 (5-7) 12/05/23 21:20 Ur Specific [place] 1.023 (1.005-1.030) 12/05/23 21:20 Urine Protein 1+ (Negative) A 12/05/23 21:20 Urine Glucose (UA) Negative (Normal) 12/05/23 21:20 Urine Ketones Negative (Negative) 12/05/23 21:20 Urine Blood 3+ (Negative) A 12/05/23 21:20 Urine Nitrate Negative (Negative) 12/05/23 21:20 Urine Bilirubin Negative (Negative) 12/05/23 21:20 Urine Urobilinogen 1.0 mg/dL (Negative) 12/05/23 21:20 Ur Leukocyte Esterase Negative (Negative) 12/05/23 21:20 Urine RBC >100 /hpf (0-2) 12/05/23 21:20 Urine WBC 0-5 /hpf (0-5) 12/05/23 21:20 Ur Squamous Epith Cells 6-10 /hpf (0-5) 12/05/23 21:20 Amorphous Sediment Not Reportable 12/05/23 21:20 Urine Bacteria Trace /hpf (NONE) 12/05/23 21:20 Hyaline Casts 3.30 /lpf 12/05/23 21:20 All radiology interpretation(s) finalized by discharge Discharge Plan Discharge Patient Disposition: Home Clinical Impression: Calculus of right kidney Condition: Stable Prescriptions: New ketorolac 10 mg tablet 10 mg PO Q8H PRN (Reason: pain) Qty: 14 0RF Rx Instructions: maximum total duration of 5 days from all oral, intranasal, or parenteral formulations No Action multivitamin Tablet 1 tab PO DAILY Discharge Orders: Discharge ED (Routine); Ordered 12/05/23 Ordered By: Pravin Trent Patient Instructions: How to Strain Your Urine (ED), Kidney Stones (ED) Activity Restrictions/Additional Instructions: You has a 4 mm kidney stone in your right proximal ureter. You have been given pain medicine to help with the passage of this. Please take it as directed. Drink plenty of fluids. Case management will be calling you later today to arrange an appointment with urologist for outpatient follow-up. If your pain gets unbearable or if you start having uncontrolled nausea vomiting or fever please return to the ER. Coding Level of Care Code ED Development Technician for Carolyn Maradiaga
[2023-12-05] MEDS: sodium chloride 0.9% 1,000 ML 999 ML IV (21:03)
--- NOTE | 2023-12-05 21:04 | PC.NURSE ---
This nurse informed pt of medications ordered for pt, pt states she doesn't want any medication at this time until she knows what is going on with her. pt educated over medications and continued to hold off at this time. Dr. Trent notified and aware.
[2023-12-05 21:05] LABS: Basophils # 0.1 10^3/uL (0.0-0.1); Basophils % 0.8 %; Eosinophils # 0.5 10^3/uL (0.0-0.8); Eosinophils % 6.8 %; Hematocrit 44.2 % (36-47); Lymphocytes # 1.9 10^3/uL (0.8-4.8); Mean Corpuscular HGB Conc 34.8 g/dL (30-55); Mean Corpuscular Hemoglobin 33.3 pg (27-33); Mean Corpuscular Volume 95.7 fl (85-98); Mean Platelet Volume 10.9 fL (7.4-10.4); Monocytes # 0.5 10^3/uL (0.2-0.9); Monocytes % 6.4 %; Neutrophils # 4.21 10^3/uL (1.8-7.7); Neutrophils % 58.7 %; Nucleated Red Blood Cells % 0 %; Platelet Count 176 10^3/cmm (157-399); Red Blood Count 4.62 10^6/uL (3.85-5.65); Red Cell Distribution Width 11.9 % (12.1-15.1); White Blood Count 7.18 10^3/uL (3.29-11.43)
[2023-12-05 21:27] LABS: Charge for UA Resulting for Rev
[2023-12-05 21:28] LABS: Alanine Aminotransferase 37 U/L (0-33); Albumin Level 4.5 g/dL (3.5-5.2); Alkaline Phosphatase 77 U/L (35-105); Anion Gap 15.8 (5-19); Aspartate Amino Transferase 38 U/L (0-32); Blood Urea Nitrogen 11 mg/dL (6-20); Calcium 9.3 mg/dL (8.5-10.5); Carbon Dioxide 24 mmol/L (22-29); Chloride 101 mmol/L (98-107); Creatinine Clr Calc Pharmacy 110.6278; Globulin 2.9 g/dL (1.3-4.6); Glomerular Filtration Rate 95.8 mL/min (90-130); Glucose 110 mg/dL (65-115); Lipase 44 U/L (13-60); Magnesium 1.8 mg/dL (1.7-2.3); Osmolality Calculated 284 mOsm/kg (285-295); Potassium 3.8 mmol/L (3.5-5.1); Sodium 137 mmol/L (136-145); Total Bilirubin 0.4 mg/dL (0.15-1.2); Total Protein 7.4 g/dL (6.6-8.7)
[2023-12-05 21:29] LABS: Bilirubin Urine Negative (Negative); Blood Urine 3+ (Negative); Glucose Urine UA Negative (Normal); Ketones Urine Negative (Negative); Leukocyte Esterase Urine Negative (Negative); Nitrate Urine Negative (Negative); Protein Urine 1+ (Negative); Specific Gravity, Urine 1.023 (1.005-1.030); Urine Appearance Clear (CLEAR); Urine Color Yellow (Yellow)
[2023-12-05 21:32] LABS: Bacteria Urine Trace /hpf; RBC Urine >100 /hpf (0-2); WBC Urine 0-5 /hpf (0-5)
[2023-12-05 21:39] LABS: Add Urine Culture? Yes
--- NOTE | 2023-12-05 21:43 | CTR_ITS ---
PROCEDURE INFORMATION: Exam: CT Abdomen And Pelvis Without Contrast Exam date and time: 12/05/2023 9:57 PM Age: 33 years old Clinical indication: Abdominal pain; Prior surgery; Surgery date: 6+ months; Surgery type: Hyst; Additional info: R abd pain radiating into groin, hematuria TECHNIQUE: Imaging protocol: Computed tomography of the abdomen and pelvis without contrast. Radiation optimization: All CT scans at this facility use at least one of these dose optimization techniques: automated exposure control; mA and/or kV adjustment per patient size (includes targeted exams where dose is matched to clinical indication); or iterative reconstruction. COMPARISON: CT abdomen pelvis w con* [id number] 08/13/2020 2:03 PM RADIATION DOSE METRICS: Total DLP (mGy-cm): 836 FINDINGS: Liver: Normal. No mass. Gallbladder and biliary ducts: Status post cholecystectomy. Pancreas: Normal. No ductal dilation. Spleen: Normal. No splenomegaly. Adrenal glands: Normal. No mass. Kidneys and ureters: 0.4 cm obstructing calculus within the proximal right ureter. Moderate right-sided hydroureteronephrosis. Mild right perinephric fat stranding. Stomach and bowel: Unremarkable. No obstruction. No mucosal thickening. Appendix: No evidence of appendicitis. Intraperitoneal space: Unremarkable. No free air. No significant fluid collection. Vasculature: Unremarkable. No abdominal aortic aneurysm. Lymph nodes: Unremarkable. No enlarged lymph nodes. Urinary bladder: Unremarkable as visualized. Reproductive: Unremarkable as visualized. Bones/joints: Unremarkable. No acute fracture. Soft tissues: Unremarkable. CT/CT kidney stone [id number] IMPRESSION: 0.4 cm obstructing calculus within the proximal right ureter. Moderate right-sided hydroureteronephrosis. Mild right perinephric fat stranding.
== END 2023-12-05 23:31 | disposition home or self-care (01) ==
PROVIDERS: Emergency Provider Emergency Medicine
DX: N13.2 Hydronephrosis with renal and ureteral calculous obstruction (principal)
CPT/HCPCS: 74176; 80053; 81003; 81015; 83690; 83735; 85025; 87086; 99284; J7030

== ENCOUNTER → 2024-12-19 16:53 | Outpatient (BNVA) | payer OTHER, BC, SELFPAY | PROVIDERS: Visit Provider Registered Nurse Neonatal Intensive Care | DX: J02.9 Acute pharyngitis, unspecified (principal) | CPT/HCPCS: 87071; 87880 ==